=== PATIENT | female | born 1980 | race Caucasian/White ===

== ENCOUNTER 2018-07-14 08:32 | Outpatient (CLI) | payer OTHER ==
--- NOTE | 2018-07-14 17:06 | MMO ---
DIGITAL SCREENING MAMMOGRAM: 07/14/18 Baseline exam. The patient's mammogram was also evaluated using computer aided detection. Bilateral craniocaudal and oblique mediolateral digital screening mammograms obtained. Images demonstrate fibroglandular tissue seen in both breasts. Bilateral breast calcifications seen. No evidence of masses or lesions noted otherwise. IMPRESSION: BIRADS 2: Benign Finding(s) Routine annual screening mammography (for women over age 40). POS: [facility]
== END 2018-07-14 08:33 | disposition home or self-care (01) ==
LOC: SCSMAMMO 08:32
PROVIDERS: ATTEND Obstetrics & Gynecology
DX: Z12.31 Encounter for screening mammogram for malignant neoplasm of breast (principal)
CPT/HCPCS: 77067